=== PATIENT | female | born 1945 | race Caucasian/White ===

== ENCOUNTER 2018-11-09 15:17 | Inpatient (IN) | payer MEDICARE, MEDICAID ==
[~2018-11-09] VITALS: Ht 160 cm; Wt 60.8 kg
[~2018-11-09 15:17] MED LIST: ASCO-339 PO; HYDR10TA14 PO; HYDR20TA3 PO; POTA8TAB4 PO; UBID100T7 PO; [UNRECOGNIZED DRUG - OTHER]
[2018-11-09] MEDS ORDERED: DIAZEPAM 5 MG TABLET PO ONE (16:00)
[2018-11-09] MEDS ORDERED: ACETAMINOPHEN 500MG TABLET PO ONE (16:00)
[2018-11-09 16:59] LABS: BASOPHILS % 0.5 % (0.0-2.0); EOSINOPHILS % 0.2 % (0.0-5.0); HEMATOCRIT. 38.5 % (36.0-48.0); HEMOGLOBIN. 12.6 g/dL (12.0-16.0); LYMPHOCYTES % 7.2 % (20.0-50.0); MEAN CORPUSCULAR HEMOGLOBIN 30.2 pg (28.0-32.0); MEAN CORPUSCULAR VOLUME 91.9 fL (81.0-99.0); MEAN PLATELET VOLUME 8.2 fl (7.4-10.4); NEUTROPHILS % 88.1 % (40.0-76.0); PLATELET 313 x1000/uL (130-400); RED BLOOD CELL COUNT 4.19 mill/uL (4.2-5.4); RED CELL DISTRIBUTION WIDTH 14.9 % (11.6-14.6)
[2018-11-09 17:03] LABS: CHLORIDE 106 mEq/L (98-107)
[2018-11-09 17:10] LABS: INR 1.1; PROTHROMBIN TIME 10.6 sec (9.1-11.1)
[2018-11-09 20:54] LABS: CLARITY URINE CLEAR (CLEAR); COLOR URINE YELLOW (YELLOW); KETONES URINE NEGATIVE (NEGATIVE); LEUKOCYTE ESTERASE URINE 1+ (NEGATIVE); NITRITE URINE POSITIVE (NEGATIVE); OCCULT BLOOD URINE TRACE (NEGATIVE); PH URINE 7.5 (4.5-8.0); PROTEIN URINE NEGATIVE (NEGATIVE); SPECIFIC GRAVITY URINE 1.006 (1.005-1.030); UROBILINOGEN URINE 0.2 E.U./dL (0.2-1.0)
[2018-11-09] MEDS ORDERED: ASPIRIN 325MG EC TABLET PO ONE (21:45)
[2018-11-09 22:47] VITALS: BP 161/84
[2018-11-10] VITALS: BP 161/84
[2018-11-10] MEDS ORDERED: ONDANSETRON HCL 4MG/2ML INJ IV PRN
[2018-11-10] MEDS ORDERED: LORAZEPAM 2MG/ML CPJ IV PRN
[2018-11-10] MEDS ORDERED: ACETAMINOPHEN 325MG TABLET PO PRN
[2018-11-10] MEDS ORDERED: HYDROMORPHONE HCL/PF 2MG/ML CPJ IV PRN
[2018-11-10] MEDS ORDERED: DOCUSATE SODIUM 100MG CAPSULE PO PRN
[2018-11-10] MEDS ORDERED: AMLODIPINE 5MG TABLET PO SCH ×2 (00:15→21:00)
[2018-11-10] MEDS: POTASSIUM CHLORIDE 20MEQ TABLET SR PO SCH ×2 (01:21→09:13)
[2018-11-10 04:00] VITALS: BP 147/69
[2018-11-10 08:00] VITALS: BP 170/85
[2018-11-10] MEDS ORDERED: POTASSIUM CHLORIDE 8 MEQ TABLET.SA PO SCH (09:00)
[2018-11-10] MEDS: ENOXAPARIN 40MG/0.4ML SYR SUBCUT SCH (09:13)
[2018-11-10] MEDS: LOSARTAN POTASSIUM 50 MG TABLET PO SCH (09:44)
[2018-11-10] MEDS: HYDROCORTISONE 20MG TABLET PO SCH ×2 (09:44→20:15)
[2018-11-10] MEDS: AMLODIPINE 5MG TABLET PO SCH ×2 (09:45→20:16)
[2018-11-10 10:26] LABS: HEMATOCRIT. 37.1 % (36.0-48.0); HEMOGLOBIN. 12.5 g/dL (12.0-16.0); LYMPHOCYTES % 10.7 % (20.0-50.0); MEAN CORPUSCULAR VOLUME 92.2 fL (81.0-99.0); MEAN PLATELET VOLUME 8.3 fl (7.4-10.4); MONOCYTES % 6.4 % (2.0-8.0); NEUTROPHILS % 78.9 % (40.0-76.0); PLATELET 300 x1000/uL (130-400); RED BLOOD CELL COUNT 4.03 mill/uL (4.2-5.4)
[2018-11-10 10:31] LABS: CHLORIDE 106 mEq/L (98-107)
[2018-11-10 10:38] LABS: PHOSPHORUS 3.2 mg/dL (2.5-4.9)
[2018-11-10 10:42] LABS: CREATINE KINASE MB FRACTION < 1.0 ng/mL (0.5-3.6)
[2018-11-10 12:00] VITALS: BP 169/78
[2018-11-10] MEDS ORDERED: PNEUMOCOCCAL 23-VAL P-SAC VAC 0.5 ML IM ONE (12:00)
[2018-11-10] MEDS: CEFTRIAXONE 1 G PREMIX 50 ML IV SCH (12:35)
[2018-11-10] MEDS ORDERED: POTASSIUM CHLORIDE 20MEQ TABLET SR PO NR (14:00)
[2018-11-10] MEDS: LOSARTAN POTASSIUM 25 MG TABLET PO SCH ×2 (14:24→20:15)
[2018-11-10 16:00] VITALS: BP 168/105
[2018-11-10] MEDS: CLONIDINE 0.1MG TABLET PO PRN (18:34)
[2018-11-10 20:00] VITALS: BP_SYST 165; BP_SYST 167; BP_SYST 170; BP_DIAS 75; BP_DIAS 86; BP_DIAS 93
[2018-11-10] MEDS ORDERED: HYDROCORTISONE 10 MG PO SCH (21:00)
[2018-11-10 21:20] LABS: CREATINE KINASE MB FRACTION < 1.0 ng/mL (0.5-3.6)
[2018-11-11] VITALS: BP 119/61
[2018-11-11 04:00] VITALS: BP 137/75
[2018-11-11 07:04] LABS: BASOPHILS % 0.7 % (0.0-2.0); HEMATOCRIT. 34.5 % (36.0-48.0); HEMOGLOBIN. 11.8 g/dL (12.0-16.0); LYMPHOCYTES % 14.3 % (20.0-50.0); MEAN CORPUSCULAR HEMOGLOBIN 31.1 pg (28.0-32.0); MEAN PLATELET VOLUME 8.3 fl (7.4-10.4); MONOCYTES % 6.8 % (2.0-8.0); NEUTROPHILS % 76.2 % (40.0-76.0); PLATELET 296 x1000/uL (130-400); RED BLOOD CELL COUNT 3.79 mill/uL (4.2-5.4)
[2018-11-11 07:13] LABS: CHLORIDE 107 mEq/L (98-107)
[2018-11-11 07:28] LABS: LDL CHOLESTEROL 127 mg/dL (5-100)
[2018-11-11 07:29] LABS: HDL CHOLESTEROL 58 mg/dL (40-59)
[2018-11-11 08:30] VITALS: BP 154/83
[2018-11-11] MEDS ORDERED: HYDROCORTISONE 20 MG PO SCH (09:00)
[2018-11-11] MEDS: HYDROCORTISONE 20MG TABLET PO SCH ×2 (09:06→21:30)
[2018-11-11] MEDS: AMLODIPINE 5MG TABLET PO SCH ×2 (09:06→21:32)
[2018-11-11] MEDS: LOSARTAN POTASSIUM 50 MG TABLET PO SCH (09:06)
[2018-11-11] MEDS: LOSARTAN POTASSIUM 25 MG TABLET PO SCH ×2 (09:06→21:32)
[2018-11-11] MEDS: POTASSIUM CHLORIDE 20MEQ TABLET SR PO SCH (09:07)
[2018-11-11] MEDS: ENOXAPARIN 40MG/0.4ML SYR SUBCUT SCH (09:10)
[2018-11-11 12:00] VITALS: BP_SYST 144; BP_SYST 157; BP_SYST 168; BP_DIAS 85; BP_DIAS 93; BP_DIAS 96
[2018-11-11] MEDS: CEFTRIAXONE 1 G PREMIX 50 ML IV SCH (13:17)
[2018-11-11 16:00] VITALS: BP 143/82
[2018-11-11 20:00] VITALS: BP_SYST 139; BP_SYST 164; BP_SYST 165; BP_DIAS 75; BP_DIAS 84; BP_DIAS 90
[2018-11-11] MEDS: CARVEDILOL 3.125 MG TABLET PO SCH (21:31)
[2018-11-12] VITALS: BP 180/80
[2018-11-12] MEDS: CLONIDINE 0.1MG TABLET PO PRN (00:39)
[2018-11-12 04:00] VITALS: BP 139/70
[2018-11-12 07:53] VITALS: BP 143/84
[2018-11-12 08:55] VITALS: BP 143/84
[2018-11-12] MEDS: HYDROCORTISONE 20MG TABLET PO SCH (09:12)
[2018-11-12] MEDS: LOSARTAN POTASSIUM 25 MG TABLET PO SCH (09:12)
[2018-11-12] MEDS: POTASSIUM CHLORIDE 20MEQ TABLET SR PO SCH (09:12)
[2018-11-12] MEDS: ENOXAPARIN 40MG/0.4ML SYR SUBCUT SCH (09:13)
[2018-11-12] MEDS: AMLODIPINE 5MG TABLET PO SCH (09:13)
[2018-11-12] MEDS: CARVEDILOL 3.125 MG TABLET PO SCH (09:13)
[2018-11-12 10:02] LABS: CHLORIDE 106 mEq/L (98-107)
[2018-11-12 10:05] LABS: BASOPHILS % 0.3 % (0.0-2.0); EOSINOPHILS % 3.3 % (0.0-5.0); HEMATOCRIT. 38.4 % (36.0-48.0); HEMOGLOBIN. 12.7 g/dL (12.0-16.0); LYMPHOCYTES % 17.1 % (20.0-50.0); MEAN CORPUSCULAR HEMOGLOBIN 30.3 pg (28.0-32.0); MEAN CORPUSCULAR VOLUME 91.8 fL (81.0-99.0); MEAN PLATELET VOLUME 8.3 fl (7.4-10.4); MONOCYTES % 7.2 % (2.0-8.0); NEUTROPHILS % 72.1 % (40.0-76.0); PLATELET 324 x1000/uL (130-400); RED BLOOD CELL COUNT 4.18 mill/uL (4.2-5.4); RED CELL DISTRIBUTION WIDTH 15.1 % (11.6-14.6)
[2018-11-12 10:17] LABS: PHOSPHORUS 3.8 mg/dL (2.5-4.9); TOTAL IRON BINDING CAPACITY 234 ug/dL (250-450)
== END 2018-11-12 10:40 | disposition home or self-care (01) | DRG 312 ==
LOC: ER 15:17 → 5WST 19:19 → EDBEDREQ 19:22 → ENRESERV 21:08
PROVIDERS: ADMIT Internal Medicine Nephrology; ATTEND Internal Medicine Nephrology
DX: R55 Syncope and collapse (principal); G91.2 (Idiopathic) normal pressure hydrocephalus; I42.9 Cardiomyopathy, unspecified; N39.0 Urinary tract infection, site not specified; E27.1 Primary adrenocortical insufficiency; F41.0 Panic disorder [episodic paroxysmal anxiety]; E87.6 Hypokalemia; F43.20 Adjustment disorder, unspecified; I10 Essential (primary) hypertension; Z79.52 Long term (current) use of systemic steroids; Z88.5 Allergy status to narcotic agent; Z98.2 Presence of cerebrospinal fluid drainage device
CPT/HCPCS: 36415; 70544; 70553; 71045; 71250; 80048; 80061; 80076; 82533; 82553; 83540; 83550; 83735; 84100; 84484; 85379; 90732; 93005; 93306; 93880; 97116; 97162; 97166; 99285; J0696; J1650; J7050